=== PATIENT | male | born 1945 | race Caucasian/White ===

== ENCOUNTER 2021-06-24 10:22 | Day surgery (SDC) | payer MEDICARE, OTHER ==
[2021-06-16 14:20] LABS: BASOPHILS % (AUTO) 0.6 % (0-1); EOSINOPHILS # (AUTO) 0.1 X10'3 (0-0.9); EOSINOPHILS % (AUTO) 2.1 % (0-6); HEMATOCRIT 43.9 % (42.0-52.0); HEMOGLOBIN 14.5 g/dl (14.0-17.9); LYMPHOCYTES # (AUTO) 1.4 X10'3 (1.1-4.8); LYMPHOCYTES % (AUTO) 21.7 % (21-51); MEAN CORPUSCULAR HEMOGLOBIN 28.8 PG (27.0-31.0); MEAN CORPUSCULAR HGB CONC 32.9 g/dL (33.0-36.5); MEAN CORPUSCULAR VOLUME 87.5 FL (78-98); MEAN PLATELET VOLUME 8.4 FL (7.4-10.4); MONOCYTES # (AUTO) 0.7 X10'3 (0-0.9); MONOCYTES % (AUTO) 11.4 % (2-12); NEUTROPHILS % (AUTO) 64.2 % (42-75); PLATELET COUNT 216 X10'3 (140-440); RED BLOOD COUNT 5.02 X10'6 (4.70-6.10); WHITE BLOOD COUNT 6.2 X10'3 (4.5-11.0)
[2021-06-16 14:34] LABS: ALBUMIN 3.7 G/DL (3.4-5.0); ANION GAP 6 (8-16); BLOOD UREA NITROGEN 24 MG/DL (7-18); BUN/CREATININE RATIO 28.6 (5.4-32.0); CALCIUM 8.7 MG/DL (8.5-10.1); CHLORIDE 108 MMOL/L (99-107); CREATININE 0.84 MG/DL (0.60-1.10); GLUCOSE 90 MG/DL (70-104); POTASSIUM 4.3 MMOL/L (3.5-5.1); SODIUM 143 MMOL/L (135-145); TOTAL CARBON DIOXIDE 29.3 MMOL/L (24-32); eGFR 89 ML/MIN
[2021-06-16 14:37] LABS: APTT 26 SECONDS (22-32)
[~2021-06-24] VITALS: Ht 182.9 cm; Wt 90.0 kg
[~2021-06-24 10:22] MED LIST: DUTA0.5C40 PO; FLO0.4C PO; MULT-1085 PO; SIMV-45 PO; TRAN650T5
[2021-06-24 10:37] VITALS: BP 127/85
[2021-06-24] MEDS ORDERED: DOXY-327 PO (10:57)
[2021-06-24] MEDS ORDERED: SOTA120T PO (10:57)
[2021-06-24] MEDS ORDERED: CARV3.122 PO (10:57)
[2021-06-24] MEDS ORDERED: MIDAZolam 1mg/ml 10ml vial IV ONE (11:15)
[2021-06-24] MEDS ORDERED: normal saline 1000ml 1,000 ML IV SCH (11:15)
[2021-06-24] MEDS ORDERED: fentaNYL/PF 50MCG/1 ML 2ML syringe IV ONE (11:15)
--- NOTE | 2021-06-24 13:00 | NUR ---
Dr. Dillon at bedside, procedure cancelled.
== END 2021-06-24 14:00 | disposition home or self-care (01) ==
LOC: SSTAY O 10:22
PROVIDERS: ATTEND Internal Medicine Interventional Cardiology
DX: I48.91 Unspecified atrial fibrillation (principal); Z53.8 Procedure and treatment not carried out for other reasons; N40.0 Benign prostatic hyperplasia without lower urinary tract symptoms; Z79.899 Other long term (current) drug therapy; Z88.0 Allergy status to penicillin; Z82.3 Family history of stroke
CPT/HCPCS: 36415; 80048; 85025; 85610; 85730; 93005

== ENCOUNTER 2021-11-27 08:25 | Outpatient (CLI) | payer MEDICARE, OTHER ==
[~2021-11-27 08:25] MED LIST changes: +CARV3.122 PO; +DOXY-327 PO; +SOTA120T PO
[2021-11-27] MEDS ORDERED: iohexol 350MG/ML 100ml bottle IV ONE (08:51)
[2021-11-27 09:01] LABS: ALBUMIN 3.7 G/DL (3.4-5.0); ANION GAP 7 (8-16); BLOOD UREA NITROGEN 21 MG/DL (7-18); BUN/CREATININE RATIO 23.9 (5.4-32.0); CALCIUM 8.7 MG/DL (8.5-10.1); CHLORIDE 107 MMOL/L (99-107); CREATININE 0.88 MG/DL (0.60-1.10); GLUCOSE 102 MG/DL (70-104); POTASSIUM 4.5 MMOL/L (3.5-5.1); SODIUM 143 MMOL/L (135-145); TOTAL CARBON DIOXIDE 29.3 MMOL/L (24-32); eGFR 84 ML/MIN
== END 2021-11-27 23:59 | disposition home or self-care (01) ==
LOC: RAD 08:25
DX: J98.11 Atelectasis (principal); K76.0 Fatty (change of) liver, not elsewhere classified; I48.11 Longstanding persistent atrial fibrillation; M47.814 Spondylosis without myelopathy or radiculopathy, thoracic region
CPT/HCPCS: 36415; 75572; 80048; J3490; Q9967

== ENCOUNTER 2022-04-01 08:50 | Outpatient (CLI) | payer MEDICARE, OTHER ==
[~2022-04-01 08:50] MED LIST changes: -DOXY-327 PO; +DOXY-457 PO
[2022-04-01] MEDS ORDERED: iohexol 350MG/ML 100ml bottle IV ONE (09:30)
[2022-04-01 09:35] LABS: ALBUMIN 3.8 G/DL (3.4-5.0); BLOOD UREA NITROGEN 25 MG/DL (7-18); BUN/CREATININE RATIO 28.7 (5.4-32.0); CREATININE 0.87 MG/DL (0.60-1.10); GLUCOSE 111 MG/DL (70-104); TOTAL CARBON DIOXIDE 26.3 MMOL/L (24-32); eGFR 85 ML/MIN
[2022-04-01 09:49] LABS: ANION GAP 9 (8-16); CHLORIDE 107 MMOL/L (99-107); POTASSIUM 4.8 MMOL/L (3.5-5.1); SODIUM 142 MMOL/L (135-145)
== END 2022-04-01 23:59 | disposition home or self-care (01) ==
LOC: RAD 08:50
PROVIDERS: ATTEND Internal Medicine Cardiovascular Disease
DX: K76.0 Fatty (change of) liver, not elsewhere classified (principal); I48.11 Longstanding persistent atrial fibrillation; M47.814 Spondylosis without myelopathy or radiculopathy, thoracic region
CPT/HCPCS: 36415; 75572; 80048; J3490; Q9967

== ENCOUNTER 2022-08-02 08:52 | Emergency (ER) | payer MEDICARE, OTHER ==
[~2022-08-02] VITALS: Ht 180.3 cm; Wt 91.0 kg
[2022-08-02 09:08] VITALS: BP 149/96
== END 2022-08-02 10:06 | disposition home or self-care (01) ==
LOC: ER 08:53
DX: S80.01XA Contusion of right knee, initial encounter (principal); Z88.0 Allergy status to penicillin; X50.1XXA Overexertion from prolonged static or awkward postures, initial encounter; Y93.89 Activity, other specified; Y92.89 Other specified places as the place of occurrence of the external cause; Y99.8 Other external cause status
CPT/HCPCS: 73610; 73630; 99284